=== PATIENT | male | born 1965 | race Caucasian/White ===

== ENCOUNTER → 2018-04-06 | Day surgery (SDC) | payer OTHER ==
[2018-04-04 12:07] LABS: BASOPHIL # 0.1 10^3/uL (0.0-0.1); EOSINOPHIL # 0.3 10^3/uL (0.0-0.2); EOSINOPHIL % 4.1 % (0.0-5.0); HEMOGLOBIN 16.9 g/dL (13.9-16.3); LYMPHOCYTES # 2.1 10^3/uL (1.0-4.8); LYMPHOCYTES % 33.7 % (24.0-44.0); MEAN CELL HGB 33.1 pg (26-34); MEAN CELL HGB CONCENTRATION 33.5 g/dL (33-37); MEAN CORP VOLUME 98.8 fL (78-100); MEAN PLATELET VOLUME 8.7 fL (7.8-11.0); MONOCYTES # 0.9 10^3/uL (0.3-0.8); MONOCYTES % 14.6 % (5.0-12.0); NEUTROPHIL # 2.9 10^3/uL (1.8-7.7); NEUTROPHILS % 46.4 % (41.0-85.0); RED CELL DISTRIBUTION WIDTH 13.9 % (11.5-14.5); WHITE BLOOD CELL 6.2 10^3/uL (4.5-11.0)
[2018-04-04 12:26] LABS: CARBON DIOXIDE 26.5 mmol/L (20.0-32)
--- NOTE | 2018-04-04 12:27 | PCM.EKG ---
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
--- NOTE | 2018-04-04 12:58 | DIREP ---
PROCEDURE:CHEST 2 VIEWS COMPARISON:None. INDICATIONS:PRE-OP HYDROCELE FINDINGS: LUNGS/PLEURA:There is pulmonary hyperinflation consistent with underlying COPD. No focal consolidation. No effusions. VASCULATURE:Normal. Unremarkable pulmonary vasculature. CARDIAC:Normal. No cardiac silhouette abnormality or cardiomegaly. MEDIASTINUM:Normal. No visible mass or adenopathy. BONES:Mild to moderate degenerative changes are seen in the right shoulder with small inferiorly directed osteophytes involving the AC joint. OTHER:Negative. CONCLUSION:Mild COPD. No active pulmonary disease. Dictated by: Reagan Guerra MD on 04/04/2018 at 12:55 PM
[2018-04-06] VITALS (11 sets, daily range): BP systolic 103–147; BP diastolic 52–75
[~2018-04-06] VITALS: Ht 170.2 cm; Wt 63.5 kg
[~2018-04-06] MED LIST: ACET-685 PO; ALBU6.7H IH; BENADRYL IV PRN; CIPR500T86 PO; DECADRON ONE; DIPRIVAN IV ONE; GABA300C10 PO; LACTATED RINGERS 1,000 ML IV SCH; LACTATED RINGERS 1,000 ML ONE; LEVAQUIN 100 ML IV ONE; METH750T94 PO; MOME13HF IH; MONT10TA9 PO; NORCO 7.5MG PO PRN; PHENERGAN IV PRN; SODIUM CHLORIDE IR ONE; SUBLIMAZE IV PRN; SUBLIMAZE ONE; TORADOL ONE; TRAM50TA PO; VENTOLIN IH PRN; VERSED ONE; ZOFRAN IV PRN; ZOFRAN ONE; [UNRECOGNIZED DRUG - CODE] PO
--- NOTE | 2018-04-06 11:45 | OPH ---
DATE OF SURGERY: 04/06/2018 PREOPERATIVE DIAGNOSIS: Left hydrocele. FINAL DIAGNOSIS: Left hydrocele. PROCEDURE: Left hydrocelectomy. DESCRIPTION OF PROCEDURE: The patient was brought to the operating room, was put in supine position on the operating room table. After the patient was given a satisfactory and adequate general anesthesia, the genitalia was then prepped and draped aseptically in the usual manner. First, a transverse incision was done in the left hemiscrotal region and then the incision was driven up to the tunica. After that, by blunt and sharp dissection, the area of the left testicle was led out of the left hemiscrotal sac. The hydrocele sac was then opened and then fluid was drained and this was excised, flushed with the epididymis and testis. The edges of the epididymis and testis were then fulgurated and then a running suture of 2-0 chromic catgut was done for hemostasis. After adequate hemostasis, the rest of the testis was examined. There was no evidence of abnormalities or no bleeding noted. So, the left testis was put back in its normal anatomical position in the left hemiscrotal sac. The [place] drain was placed in the area and then the scrotal skin incision was closed in 2 layers with the use of 2-0 chromic catgut in an interrupted fashion. After that, pressure dressing was applied. The patient was awakened, the patient was transferred to the recovery room in stable condition. Triston Alatorre MD DR: [email or web address]/[email or web address] JOB# [id number]
== END | disposition home or self-care (01) | DRG 730 ==
LOC: SURG 03:49
PROVIDERS: ATTEND Urology
DX: N43.3 Hydrocele, unspecified (principal); J44.9 Chronic obstructive pulmonary disease, unspecified; Z88.8 Allergy status to other drugs, medicaments and biological substances; Z98.890 Other specified postprocedural states; Z79.899 Other long term (current) drug therapy; F17.210 Nicotine dependence, cigarettes, uncomplicated
CPT/HCPCS: 36415; 55040; 71046; 80051; 82565; 84520; 85025; 85610; 85730; 88302; 93005; J1100; J1885; J1956; J2250; J2405; J3010; J3490; J7030; J7120